=== PATIENT | male | born 1955 | race Caucasian/White ===

== ENCOUNTER → 2020-06-12 | Day surgery (SDC) | payer OTHER, MEDICAID ==
[~2020-06-12] MED LIST: Albuterol 0.083% 2.5 MG/3 ML Neb Soln NEB SCH; Albuterol/Ipratropium 3.0-0.5 MG/3 ML Neb Soln NEB SCH; Lactated Ringers 1,000 ML IV SCH; Lidocaine 1% 4 ML ONE; Lidocaine 1%/Sod Bicarbonate in NS 8.4% 1 ML Syringe IDERM PRN; Propofol 200 MG/20 ML SDV ONE; Sodium Chloride 0.9% 10 ML Syringe FLUSH PRN
--- NOTE | 2020-06-12 07:56 | PCM.PREANE ---
Preanesthetic Assessment - Anesthesia/Transfusion/Family Hx Anesthesia History: Prior Anesthesia Without Reaction Family History of Anesthesia Reaction: No Transfusion History: Unknown Intubation History: Unknown - Review of Systems General: No Symptoms Pulmonary: No Symptoms Cardiovascular: No Symptoms Gastrointestinal: No Symptoms Neurological: No Symptoms Other: Reports: None - Physical Assessment NPO Status Date: 06/12/20 NPO Status Time: 06:00 ASA Class: 3 Mental Status: Alert & Oriented x3 Airway Class: Mallampati = 1 (no teeth, no dentures) Thyro-Mental Finger Breadths: 3 Mouth Opening Finger Breadths: 3 ROM/Head Extension: Full Lungs: Decreased Breath Sounds, Wheezing (insp wheeze (R) ) - Allergies Allergies/Adverse Reactions: Allergies Allergy/AdvReac Type Severity Reaction Status Date / Time No Known Allergies Allergy Verified 06/11/20 09:39 - Anesthesia Plan Beta Ernie: Metoprolol Med Last Dose Date: 06/12/20 Med Last Dose Time: 06:00 - Acknowledgements Anesthesia Type Planned: MAC Pt an Appropriate Candidate for the Planned Anesthesia: Yes Alternatives and Risks of Anesthesia Discussed w Pt/Guardian: Yes Pt/Guardian Understands and Agrees with Anesthesia Plan: Yes PreAnesthesia Questionnaire HEENT History: Reports: Allergic Rhinitis Cardiovascular History: Reports: High Cholesterol, Stents Respiratory History: Reports: Asthma, COPD Gastrointestinal History: Reports: GERD, Other (See Below) Genitourinary History: Reports: None POOL MANAGER History: Reports: None Musculoskeletal History: Reports: Osteoarthritis, Other (See Below) Other Musculoskeletal History: metacarpal fracture, back ache, lateral epicondylitis Neurological History: Reports: Other (See Below) Other Neuro History: lumbar stenosis with neurogenic claudication, lumbar disc degneration Psychiatric History: Reports: None Endocrine/Metabolic History: Reports: None Hematologic History: Reports: Anemia Immunologic History: Reports: None Oncologic (Cancer) History: Reports: None Dermatologic History: Reports: None - Infectious Disease History Infectious Disease History: Reports: None - Past Surgical History Head Surgeries/Procedures: Reports: None HEENT Surgical History: Reports: Cataract Surgery Cardiovascular Surgical History: Reports: None Respiratory Surgical History: Reports: None GI Surgical History: Reports: Colonoscopy, Other (See Below) Other GI Surgeries/Procedures: stomach surgery Female Surgical History: Reports: None Male Surgical History: Reports: None Endocrine Surgical History: Reports: None Neurological Surgical History: Reports: Discectomy, Laminectomy Oncologic Surgical History: Reports: None Dermatological Surgical History: Reports: None - SUBSTANCE USE Tobacco Use Status *Q: Current Every Day Tobacco User Recreational Drug Use History: No - HOME MEDS Home Medications: Home Meds Acetaminophen [Tylenol Extra Strength] 1,500 mg PO Q6H PRN 06/11/20 [History] Albuterol [Proventil] 1 dose NEB Q4H PRN 06/11/20 [History] Albuterol [Take Home: Albuterol 18 GM, 1 INH Pack] 2 puff INH Q4H PRN 06/11/20 [History] Aspirin 81 mg PO DAILY 06/11/20 [History] Budesonide/Formoterol [Symbicort 160-4.5 MCG] 2 puff INH BID 06/11/20 [History] Ergocalciferol (Vitamin D2) [Vitamin D2] 50,000 unit PO Q7D 06/11/20 [History] Ibuprofen 600 mg PO Q6H PRN 06/11/20 [History] Lidocaine [Lidocaine 5%] 1 dose TOP Q12H 06/11/20 [History] Loratadine [Claritin] 10 mg PO DAILY 06/11/20 [History] Metoprolol Succinate [Toprol XL] 25 mg PO DAILY 06/11/20 [History] Montelukast Sodium [Singulair] 10 mg PO DAILY 06/11/20 [History] Ranitidine [Zantac] 75 mg PO DAILY 06/11/20 [History] Rosuvastatin [Crestor] 10 mg PO DAILY 06/11/20 [History] amLODIPine Besylate [Norvasc] 2.5 mg PO DAILY 06/11/20 [History] traZODone HCl [Trazodone HCl] 100 mg PO BEDTIME 06/11/20 [History] - CURRENT (IN HOUSE) MEDS Current Meds: Current Medications Albuterol (Proventil Neb Soln) 2.5 mg NEB ONETIME MORTEZA Stop: 06/12/20 18:00 Lactated Ringer's (Ringers, Lactated) 1,000 mls @ 125 mls/hr IV ASDIRECTED MORTEZA Stop: 06/12/20 23:00 Lidocaine/Sodium Bicarbonate (Buffered Lidocaine 1% In Ns 8.4%) 0.25 ml IDERM ONETIME PRN PRN Reason: Prior to IV Start Stop: 06/12/20 18:00 Sodium Chloride (Saline Flush) 10 ml FLUSH ASDIRECTED PRN PRN Reason: Keep Vein Open Stop: 06/12/20 18:00 Discontinued Medications Albuterol (Proventil Neb Soln) 2.5 mg NEB ONETIME MORTEZA Stop: 06/12/20 18:00
--- NOTE | 2020-06-12 09:45 | PCM48HPAN ---
Post Anesthesia Note - EVALUATION WITHIN 48HRS OF ANESTHETIC Vital Signs in Normal Range: Yes Patient Participated in Evaluation: Yes Respiratory Function Stable: Yes Airway Patent: Yes Cardiovascular Function Stable: Yes Hydration Status Stable: Yes Pain Control Satisfactory: Yes Nausea and Vomiting Control Satisfactory: Yes Mental Status Recovered: Yes Vital Signs: Last Vital Signs 121/79 68 12 96.9 92 3L NC Temp 36.0 C L 06/12/20 08:00 Pulse 72 06/12/20 08:00 Resp 18 06/12/20 08:00 BP 133/86 06/12/20 08:00 Pulse Ox 94 L 06/12/20 08:00
--- NOTE | 2020-06-12 10:31 | PROC ---
DATE OF OPERATION: 06/12/2020 SURGEON: Lucian Daly MD PREOPERATIVE DIAGNOSIS: Dysphagia. POSTOPERATIVE DIAGNOSES: 1. Esophagitis, LA grade C. 2. Mild distal esophageal stricture. 3. Moderate-sized hiatal hernia. 4. Mild gastritis. OPERATION PERFORMED: Esophagogastroduodenoscopy. ANESTHESIA: Monitored anesthesia care. COMPLICATIONS: None. INDICATIONS AND CONSENT: Mr. Crystal is a 64-year-old male who has been having chronic dysphagia. The patient has dysphagia to solids but not liquids and this has been getting worse over time. He has to take fluids to push some solids down whenever he eats solids. The patient was evaluated in my clinic and at that point he had some indeterminate stress test findings and he was seen with Cardiology and cleared for EGD. I saw him in clinic again and he was still having symptoms. We discussed risks, benefits, and alternatives for EGD, possible dilation, and informed consent was obtained. DESCRIPTION OF PROCEDURE: The patient was taken to the procedure room, placed in left lateral decubitus position, padded appropriately and then monitored anesthesia care was induced. We began the procedure by inserting the scope through the mouth and took all the way down. The upper and mid esophagus were normal. Distal esophagus had LA grade C esophagitis, and GE junction was clearly inflamed and slightly edematous. There was a medium-sized hiatal hernia. We went down into the stomach. There were no ulcers or polyps in the stomach. We went down to the bulb, first and second portion of duodenum which all were normal. Went back to the stomach. There was mild gastritis in the antrum, marked by granularity. Biopsies were taken here with cold forceps. On retroflexion, again a medium- sized hiatal hernia was confirmed. There were no other abnormalities. There were no ulcers, went back into the distal esophagus. We biopsied the GE junction, distal esophagus for pathologic exam. 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 This did not appear to be obstructive as the scope was able to pass this area without any problems. Because of the patient's symptoms, I decided to dilate this area. We dilated with a TTS dilator from 13.5 to 15 mm. The dilation was done all the way to 15 mm. There was no bleeding after the dilation. After this was done, the area appeared to be little bit patulous and air was suctioned out and scope was removed concluding the procedure. The patient will be allowed to return home. The patient to come to see me in clinic in 2 weeks. RICA /[id number] MTDD
== END | disposition home or self-care (01) ==
LOC: JD.SDS 07:36
PROVIDERS: ATTEND Surgery
DX: K22.2 Esophageal obstruction (principal); K44.9 Diaphragmatic hernia without obstruction or gangrene; K29.70 Gastritis, unspecified, without bleeding; K21.00 Gastro-esophageal reflux disease with esophagitis, without bleeding; J44.9 Chronic obstructive pulmonary disease, unspecified; E11.9 Type 2 diabetes mellitus without complications; F17.210 Nicotine dependence, cigarettes, uncomplicated; E78.00 Pure hypercholesterolemia, unspecified; Z98.890 Other specified postprocedural states; Z79.899 Other long term (current) drug therapy; Z88.8 Allergy status to other drugs, medicaments and biological substances
CPT/HCPCS: 43239; 43249; 88305; 94640; J2704; J7120; 00731

== ENCOUNTER 2022-01-20 11:37 | Emergency (ER) | payer OTHER ==
[2022-01-20] MEDS ORDERED: Orphenadrine 100 MG Tab.ER PO ONE (13:47)
[2022-01-20] MEDS ORDERED: Ketorolac 60 MG/2 ML SDV IM ONE (13:47)
== END 2022-01-20 15:20 | disposition home or self-care (01) ==
LOC: JD.ED 11:37
DX: M62.830 Muscle spasm of back (principal); E78.00 Pure hypercholesterolemia, unspecified; J44.9 Chronic obstructive pulmonary disease, unspecified; K21.9 Gastro-esophageal reflux disease without esophagitis; M19.90 Unspecified osteoarthritis, unspecified site; Z95.5 Presence of coronary angioplasty implant and graft; Z88.8 Allergy status to other drugs, medicaments and biological substances; Z88.5 Allergy status to narcotic agent; Z88.6 Allergy status to analgesic agent; Z79.82 Long term (current) use of aspirin; Z79.899 Other long term (current) drug therapy
CPT/HCPCS: 96372; 99283; 99284

== ENCOUNTER 2023-08-23 13:28 | Emergency (ER) | payer OTHER ==
[2023-08-23] MEDS: Diltiazem 25 MG/5 ML SDV IVPUSH ONE ×2 (13:47→14:24)
[2023-08-23 14:06] LABS: HEMATOCRIT 33.7 % (42.0-52.0); HEMOGLOBIN 11.9 gm/dl (14.0-18.0); LYMPHOCYTES ABSOLUTE AUTO 0.2 K/mm3 (1.0-4.8); LYMPHOCYTES PERCENT AUTO 85.7 % (24.0-44.0); MEAN CORPUSCULAR HEMOGLOBIN 32.6 pg (28.0-32.0); MEAN CORPUSCULAR HGB CONC 35.3 g/dl (32.0-36.0); MEAN CORPUSCULAR VOLUME 92.3 fl (83.0-99.0); MEAN PLATELET VOLUME 12.1 fl (9.4-12.4); MONOCYTES PERCENT AUTO 4.8 % (0.0-8.0); NEUTROPHILS PERCENT AUTO 9.5 % (41.0-71.0); RED BLOOD CELL COUNT 3.65 M/mm3 (4.52-5.90)
[2023-08-23 14:16] LABS: PLATELET COUNT,PLT 11 K/mm3 (150-400)
[2023-08-23 14:17] LABS: WHITE BLOOD CELL COUNT,WBC 0.21 K/mm3 (3.9-11.3)
[2023-08-23 14:20] LABS: INR 1.24; PROTHROMBIN TIME 13.1 SECONDS (9.7-12.0)
[2023-08-23 14:29] LABS: MAGNESIUM 1.7 mg/dL (1.8-2.4); PHOSPHORUS 3.1 mg/dL (2.6-4.7)
[2023-08-23] MEDS: Sodium Chloride 0.9% 1,000 ML IV ONE ×2 (14:40→16:59)
[2023-08-23 14:42] LABS: SLIDE REVIEW ABNORMAL SMEAR
[2023-08-23 14:45] LABS: D-DIMER QUANTITATIVE 10.97 mg/L (0.19-0.50)
[2023-08-23 14:50] LABS: LACTIC ACID 5.7 mmol/L (0.4-2.0)
[2023-08-23] MEDS: Diltiazem 125 MG in Sodium Chloride 0.9% 100 ML IV SCH (14:55)
[2023-08-23] MEDS: Digoxin 500 MCG/2 ML Amp IVPUSH ONE (15:34)
[2023-08-23 16:01] LABS: A/G RATIO 0.6 (1-2); ALBUMIN 2.4 g/dl (3.4-5.0); ANION GAP 22.7 (5-15); BILIRUBIN TOTAL 2.1 mg/dL (0.2-1.0); BUN/CREATININE RATIO 11.7 (14-18); CALCIUM 8.6 mg/dL (8.5-10.1); EST CRCL DRUG DOSING (CG) 28.95 mL/min; POTASSIUM,K 3.7 mEq/L (3.5-5.1); PROTEIN TOTAL,TP 6.4 g/dl (6.4-8.2)
[2023-08-23] MEDS: Pantoprazole 40 MG Vial IVPUSH ONE (16:47)
[2023-08-23] MEDS: Ondansetron 4 MG/2 ML SDV IVPUSH ONE (16:49)
[2023-08-23] MEDS: Octreotide 500 MCG in Sodium Chloride 0.9% 499 ML IV SCH (16:58)
== END 2023-08-23 17:34 ==
LOC: JD.ED 13:28
DX: A41.9 Sepsis, unspecified organism (principal); R65.20 Severe sepsis without septic shock; T79.6XXA Traumatic ischemia of muscle, initial encounter; I21.4 Non-ST elevation (NSTEMI) myocardial infarction; I48.91 Unspecified atrial fibrillation; K92.2 Gastrointestinal hemorrhage, unspecified; K92.0 Hematemesis; R79.89 Other specified abnormal findings of blood chemistry; C22.9 Malignant neoplasm of liver, not specified as primary or secondary; D69.6 Thrombocytopenia, unspecified; I25.2 Old myocardial infarction; M19.90 Unspecified osteoarthritis, unspecified site; J45.909 Unspecified asthma, uncomplicated; E78.00 Pure hypercholesterolemia, unspecified; Z88.8 Allergy status to other drugs, medicaments and biological substances; Z79.82 Long term (current) use of aspirin; Z79.899 Other long term (current) drug therapy
CPT/HCPCS: 36415; 36430; 70450; 71045; 72072; 72100; 80053; 80307; 82550; 83605; 83735; 84100; 84484; 85025; 85379; 85384; 85610; 86850; 86900; 86901; 86922; 93005; 96365; 96366; 96368; 96375; 96376; 99291; 99292; C9113; J0282; J1160; J2354; J2405; J3490; J7030; J7040; P9016; 93010; 99285

== ENCOUNTER 2023-08-23 18:25 | Emergency (ER) | payer OTHER ==
[2023-08-23] MEDS: Sodium Bicarbonate 8.4% 50 MEQ/50 ML Syringe IVPUSH ONE (18:32)
== END 2023-08-23 23:11 | disposition expired ==
LOC: JD.ED 18:25
DX: I46.9 Cardiac arrest, cause unspecified (principal); D65 Disseminated intravascular coagulation [defibrination syndrome]; E78.00 Pure hypercholesterolemia, unspecified; I25.2 Old myocardial infarction; J44.89 Other specified chronic obstructive pulmonary disease; K21.9 Gastro-esophageal reflux disease without esophagitis; Z79.82 Long term (current) use of aspirin; Z79.899 Other long term (current) drug therapy; Z88.6 Allergy status to analgesic agent; Z88.5 Allergy status to narcotic agent; Z88.8 Allergy status to other drugs, medicaments and biological substances
CPT/HCPCS: 92950; 99284; 99285-25; J3490